=== PATIENT | male | born 1960 | race Caucasian/White ===

== ENCOUNTER 2020-01-15 06:23 | Day surgery (SDC) | payer BC ==
[~2020-01-15 06:23] MED LIST: VOLTAREN ARTHRI20 GM
--- NOTE | 2020-01-15 07:33 | NUR ---
01/15/20 0733 Aylin Argueta RIGHT SHOULDER NERVE BLOCK PERFORMED BY DR MEJIA IN [facility].
--- NOTE | 2020-01-15 08:12 | NUR ---
01/15/20 0812 Kelvin Gaviria A SMALL BRUISE NOTED WHERE RIGHT BOLSTER WAS APPLIED BEFORE THE BOLSTER WAS APPLIED. DR PERAZA AWARE.
== END 2020-01-15 09:56 | disposition home or self-care (01) ==
LOC: ORSCSDS 06:23
PROVIDERS: Orthopaedic Surgery
PROC: 0RBJ4ZZ Excision of Right Shoulder Joint, Percutaneous Endoscopic Approach (ICD-10-PCS; principal; 2020-01-15 07:30)
DX: M75.21 Bicipital tendinitis, right shoulder (principal); M94.211 Chondromalacia, right shoulder; M65.811 Other synovitis and tenosynovitis, right shoulder
CPT/HCPCS: J0171; J0690; J1100; J2250; J2405; J2704; J3010; J7120

== ENCOUNTER → 2020-08-26 | Outpatient (CLI) | payer BC | END | disposition home or self-care (01) | LOC: LAB SHORT 07:45 | DX: H01.9 Unspecified inflammation of eyelid (principal) | CPT/HCPCS: 88305 ==

== ENCOUNTER → 2023-07-11 | Outpatient (CLI) | payer OTHER ==
[2023-07-13 12:20] LABS: Stool Occult Bld Immuno 1 Negative (NEGATIVE)
== END | disposition home or self-care (01) ==
LOC: LAB SHORT 16:00
PROVIDERS: Physician Assistant
DX: Z12.11 Encounter for screening for malignant neoplasm of colon (principal)
CPT/HCPCS: G0328

== ENCOUNTER → 2024-08-11 | Outpatient (CLI) | payer OTHER ==
[2024-08-12 12:32] LABS: Stool Occult Bld Immuno 1 Negative (NEGATIVE)
== END | disposition home or self-care (01) ==
LOC: LAB 17:00 → LAB SHORT 17:00
PROVIDERS: Physician Assistant
DX: Z12.11 Encounter for screening for malignant neoplasm of colon (principal)
CPT/HCPCS: G0328